=== PATIENT | female | born 1995 | race Two or more races ===

== ENCOUNTER 2017-10-29 19:19 | Emergency (ER) | payer SELFPAY ==
[2017-10-29 19:27] VITALS: BP 120/72; PULSE 91; RESP 16; TEMP 98.1; O2SAT 97
[2017-10-29] MEDS ORDERED: IBUPROFEN 200 MG TAB PO ONE (19:32)
[2017-10-29] MEDS ORDERED: CEPHALEXIN 500 MG CAP PO ONE (19:36)
--- NOTE | 2017-10-29 19:36 | EDPHY ---
H & P Time Seen by Provider: 10/29/17 19:20 HPI/ROS: CHIEF COMPLAINT: Left breast pain HISTORY OF PRESENT ILLNESS: Not , no trauma, no fever or chills. Noticed left breast pain 2 days ago and yesterday there was a red hot tender swollen area on the left upper outer quadrant of her breast which is better today but not completely gone. Size was approximately 6-7 cm in diameter. Yesterday it was much more firm and indurated than today although to palpation at the area today still is painful. REVIEW OF SYSTEMS: No nipple discharge, no chest pain, no shortness of breath or cough or fever. PAST MEDICAL HISTORY: Negative, not Social history: [facility] patient General Appearance: Alert and conversant, cooperative. Breath sounds equal. Slight redness over the upper outer quadrant of the breast 5 cm diameter, but no blisters or eschar or lymphangitis. Mildly tenderness to palpation but no fluctuance. Not indurated or hot to the touch now. No masses are palpated. No vesicles or evidence of zoster and no rash on the back. Emergency Department course/MDM: I think pulmonary embolism or zoster or pneumonia are unlikely. I think abscess is unlikely. Given history of red hot tender swollen area which is not completely gone with continued pain will treat with oral Keflex x7 days and ibuprofen for pain. Smoking Status: Never smoked Constitutional: Initial Vital Signs Temperature (C) 36.7 C 10/29/17 19:23 Heart Rate 91 10/29/17 19:23 Respiratory Rate 16 10/29/17 19:23 Blood Pressure 120/72 10/29/17 19:23 O2 Sat (%) 97 10/29/17 19:23 O2 Delivery Mode Room Air Allergies/Adverse Reactions: No Known Allergies Allergy (Verified 10/29/17 19:23) Home Medications: Medication Instructions Recorded NO HOME MEDICATIONS 01/25/11 Cephalexin [Keflex] 500 mg PO TID #28 cap 10/29/17 MDM/Departure - MDM Medications Given: Discontinued Medications Cephalexin HCl (Keflex) 500 mg PO EDNOW ONE PRN Reason: Protocol Stop: 10/29/17 19:37 Last Admin: 10/29/17 19:42 Dose: 500 mg Ibuprofen (Motrin) 600 mg PO EDNOW ONE Stop: 10/29/17 19:33 Last Admin: 10/29/17 19:37 Dose: 600 mg - Depart Disposition: Home, Routine, Self-Care Clinical Impression: Cellulitis of left breast Condition: Good Instructions: Cephalexin (By mouth) Additional Instructions: You need to return if you get recurrent severe pain or fever. Mandatory follow-up with your clinic within the next week for recheck, you should get ultrasound or other evaluation of the breast if not improving. Prescriptions: Cephalexin [Keflex] 500 mg PO TID #28 cap Referrals: [facility],. [Clinic] - As per Instructions
== END 2017-10-29 19:46 | disposition home or self-care (01) ==
LOC: CED 19:19
DX: N61.1 Abscess of the breast and nipple (principal)

== ENCOUNTER 2019-02-25 00:38 | Emergency (ER) | payer OTHER ==
[2019-02-25] MEDS ORDERED: NS 1,000 ML IV ONE (00:57)
[2019-02-25 01:27] LABS: PLATELET COUNT 362 10^3/uL (150-400)
[2019-02-25] MEDS ORDERED: PHENAZOPYRIDINE HCL 200 MG TAB PO ONE (02:29)
[2019-02-25] MEDS ORDERED: NITROFURANTOIN 100MG PREPACK#2 BTL TAKEHOME ONE (02:29)
--- NOTE | 2019-02-25 02:59 | EDPHY ---
H & P Stated Complaint: Urinary retention, pain, spotting, Mid abd pain Time Seen by Provider: 02/25/19 02:11 HPI/ROS: HPI The patient presents with suprapubic abdominal pain which began earlier tonight and has been constant, moderate in severity. No prior hx of similar. She has had urinary urgency, hesistancy and dysuria. No vaginal discharge. No fever, flank pain or vomiting. REVIEW OF SYSTEMS 10 systems were reviewed and negative with the exception of the elements mentioned in the history of present illness. PMHx: healthy Soc Hx: nonsmoker, housed PHYSICAL General Appearance: Alert, no distress Eyes: Pupils equal and round no pallor or injection ENT, Mouth: Mucous membranes moist Respiratory: There are no retractions, lungs are clear to auscultation Cardiovascular: Regular rate and rhythm Gastrointestinal: Abdomen is soft and with suprapubic abdominal tenderness, no CVAT, no masses, bowel sounds normal Neurological: A&O, moves all extremities Skin: Warm and dry, no rashes Musculoskeletal: Neck is supple non tender Extremities: symmetrical, full range of motion Psychiatric: Patient is oriented X 3, there is no agitation - Personal History LMP (Females 10-55): 15-21 Days Ago Current Tetanus Diphtheria and Acellular Pertussis (TDAP): Yes - Medical/Surgical History Hx Asthma: No Hx Chronic Respiratory Disease: No Hx Diabetes: No Hx Cardiac Disease: No Hx Renal Disease: No Hx Cirrhosis: No Hx Alcoholism: No Hx HIV/AIDS: No Hx Splenectomy or Spleen Trauma: No Other PMH: Med hx-none. Surg-none - Social History Smoking Status: Never smoked Constitutional: Initial Vital Signs Temperature (C) 36.8 C 02/25/19 00:40 Heart Rate 98 02/25/19 00:40 Respiratory Rate 16 02/25/19 00:40 Blood Pressure 128/72 H 02/25/19 00:40 O2 Sat (%) 97 02/25/19 00:40 O2 Delivery Mode Room Air Allergies/Adverse Reactions: No Known Allergies Allergy (Verified 02/25/19 00:43) Home Medications: Medication Instructions Recorded NO HOME MEDICATIONS 01/25/11 Nitrofurantoin Monohyd/M-Cryst 100 mg PO BID 5 Days capsule 02/25/19 [Macrobid 100 mg Capsule] Phenazopyridine HCl [Pyridium] 100 mg PO Q6H PRN #10 tablet 02/25/19 Medical Decision Making Differential Diagnosis: 23-year-old female with irritative voiding symptoms and suprapubic abdominal pain presents with what sounds to be hemorrhagic cystitis. She was treated here with IV fluids I will give her a dose of ceftriaxone. She will be discharged home with Macrobid. Differential diagnoses considered include cystitis, pyelonephritis, less likely PID. - Data Points Laboratory Results: Laboratory Results 02/25/19 01:00 02/25/19 01:00 Medications Given: Discontinued Medications Sodium Chloride (Ns) 1,000 mls @ 0 mls/hr IV ONCE ONE; Wide Open PRN Reason: Protocol Stop: 02/25/19 00:58 Last Admin: 02/25/19 00:58 Dose: 1,000 mls Ceftriaxone Sodium/Dextrose (Rocephin 1 Gm (Premix)) 50 mls @ 100 mls/hr IV EDNOW ONE PRN Reason: Protocol Stop: 02/25/19 02:58 Last Admin: 02/25/19 02:43 Dose: 50 mls Nitrofurantoin (Macrobid 100mg Prepack#2) 1 btl TAKEHOME EDNOW ONE PRN Reason: Protocol Stop: 02/25/19 02:30 Last Admin: 02/25/19 02:44 Dose: 1 btl Phenazopyridine HCl (Pyridium) 200 mg PO EDNOW ONE Stop: 02/25/19 02:30 Last Admin: 02/25/19 02:44 Dose: 200 mg Departure - Departure Disposition: Home, Routine, Self-Care Clinical Impression: Urinary tract infection Condition: Good Instructions: Urinary Tract Infection in Women (ED) Additional Instructions: Please make sure to drink plenty of fluids. You should return to the emergency department if your worse in any way. Referrals: [facility],. [Clinic] - As per Instructions Prescriptions: Nitrofurantoin Monohyd/M-Cryst [Macrobid 100 mg Capsule] 100 mg PO BID 5 Days capsule Phenazopyridine HCl [Pyridium] 100 mg PO Q6H PRN #10 tablet PRN Reason: painful urination
[2019-02-25 03:15] VITALS: BP 122/76
== END 2019-02-25 03:14 | disposition home or self-care (01) ==
DX: N39.0 Urinary tract infection, site not specified (principal)
CPT/HCPCS: 96365; J0696